=== PATIENT | female | born 1985 | race Caucasian/White ===

== ENCOUNTER → 2018-09-14 17:03 | Outpatient (CLI) | payer OTHER, SELFPAY ==
--- NOTE | 2018-09-14 | DI.MRI.S_ITS ---
PROCEDURE: MR LUMBAR SPINE WO CON INDICATIONS: Low back pain with left leg and foot pain TECHNIQUE: Noncontrast sagittal T1 spin echo and T2 fast echo, sagittal STIR, axial T1 and T2 fast spin echo through the lumbar spine. In cases with scoliosis, additional coronal T2 fast spin echo may be performed. COMPARISON: None. FINDINGS: Image quality: Excellent. Alignment and Curvature: There is normal bony alignment. Bone Marrow: Marrow is of normal overall signal. No acute vertebral body compression fractures. Spinal Cord: Conus medullaris terminates at the L1 level. Visualized cord demonstrates normal signal and size. Paraspinous Soft Tissues: No paravertebral masses. T12-L1: Normal appearance. L1-L2: Normal appearance. L2-L3: Normal appearance. L3-L4: Normal appearance. L4-L5: The disc height is well-preserved. Loss of disc signal is seen at this level. Mild to moderate disc bulge is seen, which is eccentric to the left. There is mild to moderate left-sided and minimal to mild right-sided neural foraminal narrowing seen. Mild to moderate central canal narrowing is seen. L5-S1: No significant disc pathology can be seen. No significant neural foraminal or central canal narrowing can be seen. 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 Dictated by: Timbo De Santiago M.D. on 09/14/2018 at 17:23 Approved by: Timbo De Santiago M.D. on 09/14/2018 at 17:25
== END ==
PROVIDERS: Family Provider Family Medicine; PCP Family Medicine; Visit Provider Family Medicine
DX: M54.5 Low back pain (principal); M79.605 Pain in left leg; M79.672 Pain in left foot; M47.26 Other spondylosis with radiculopathy, lumbar region; M48.061 Spinal stenosis, lumbar region without neurogenic claudication
CPT/HCPCS: 72148

== ENCOUNTER → 2018-10-21 15:03 | Outpatient (CLI) | payer OTHER, SELFPAY ==
--- NOTE | 2018-10-21 | DI.ECHO.S_ITS ---
[facility] +---------+ : : [address] : [place] : : : : [id number] : : : : Phone: [phone]+ Echocardiogram Report + + :Name: MEG BRYAN Study Date: 10/21/2018 Height: 63 in : :[facility] Weight: 113 lb : : Gender: Female BSA: 1.5 m2 : :: 1985 Age: 32 yrs BP: 108/20 mmHg: :Reason For Study: Syncope : : Performed By: Lianet Anne : :Referring: CARLOS MANUEL SOSA : + + Interpretation Summary 1) Normal left ventricular thickness, size, wall motion, and systolic function (EF 60-65%). 2) Normal right ventricular size and function. 3) No significant valvular abnormalities. 4) Injection of contrast with valsalva documented an interatrial shunt. 5) No prior Echo available for comparison. Procedure: A two-dimensional transthoracic echocardiogram with color flow and Doppler was performed. The study quality was technically good. There is no prior echocardiogram noted for this patient. The patient was in normal sinus rhythm during the exam. Left Ventricle: The left ventricle is normal in size, wall thickness, and systolic function without any focal wall motion abnormalities. The ejection fraction is estimated to be 60-65%. Diastolic parameters suggest probable normal left ventricular diastolic function and normal filling pressures. Right Ventricle: The right ventricle grossly appears normal in size with probable normal systolic function. Atria: The left atrial size is normal. Right atrial size is normal. Injection of contrast with valsalva documented an interatrial shunt. Mitral Valve: The mitral valve is normal in structure and function. There is no mitral regurgitation noted. Aortic Valve: The aortic valve is trileaflet. The aortic valve opens well. No aortic regurgitation is present. Tricuspid Valve: The tricuspid valve is normal in structure and function. There is trace tricuspid regurgitation. The right ventricular systolic pressure is estimated to be at least 18 mmHg based on an estimated right atrial pressure of 3 mm Hg. Pulmonic Valve: The pulmonic valve is normal in structure and function. There is a trace or physiologic amount of pulmonic regurgitation. Great Vessels: The aortic root is normal size. The aortic arch is normal in size. The IVC is of normal diameter and collapses greater than 50% with a sniff. This suggests a low right atrial pressure of 3 mm Hg. Pericardium/ Pleura There is no pericardial effusion. There is no pleural effusion. MMode/2D Measurements & Calculations LVIDd: 4.4 cm Ao root diam: 2.7 cm LVIDs: 2.9 cm Aortic Jxn: 2.1 cm FS: 33.9 % Ao Arch Diam (Prox Trans): 2.5 cm EPSS: 0.27 cm IVSd: 0.68 cm LVPWd: 0.75 cm LV hansen. diameter/BSA (cm/m^2): 2.9 LV sys. diameter/BSA (cm/m^2): 1.9 LA dimension: 2.9 cm RA long axis: 3.6 cm LA A2 area: 11.8 cm2 RA area: 10.3 cm2 LA A4 area: 13.4 cm2 RA vol: 24.9 ml RA : 16.4 ml/m2 IVC diam: 1.6 cm RVDd major: 5.1 cm RVD1 (basal): 2.8 cm LA Length_phl: 4.7 cm RVD2 (mid): 2.8 cm Doppler Measurements & Calculations Ao V2 max: 109.7 cm/sec MV E max herbert: 62.7 cm/sec Ao V2 mean: 77.3 cm/sec MV A max herbert: 80.3 cm/sec Ao max P.8 mmHg MV E/A: 0.78 Ao mean P.7 mmHg Med Peak E' Herbert: 10.3 cm/sec Ao V2 VTI: 21.0 cm E/E' med: 6.1 Lat Peak E' Herbert: 12.8 cm/sec E/E' lat: 4.9 E/e' average: 5.5 MV dec time: 0.19 sec MV P1/2t: 53.5 msec TR max herbert: 194.0 cm/sec MV P1/2t max herbert: 62.3 cm/sec TR max P.1 mmHg MVA(P1/2t): 4.1 cm2 PA V2 max: 80.3 cm/sec PA V2 mean: 53.9 cm/sec PA mean P.4 mmHg PA Accel Time: 0.17 sec Reading Physician:04:54 PM
--- NOTE | 2018-10-21 | DI.MRI.S_ITS ---
PROCEDURE: MR CERVICAL SPINE WO CON INDICATIONS: SYNCOPE NECK AND BACK PAIN TECHNIQUE: Noncontrast sagittal T1 spin echo and T2 fast spin echo, sagittal STIR, foraminal oblique sagittal T2 fast spin echo, and axial gradient echo or T2 fast spin echo through the cervical spine. COMPARISON: [facility], MR, BRAIN WITHOUT CONTRAST, 09/10/2017, 17:06. [facility], MR, C-SPINE WITHOUT CONTRAST, 12/22/2011, 19:23. FINDINGS: Image quality: Excellent. Alignment and Curvature: There is straightening of the normal cervical lordosis. No focal AP alignment abnormality is seen. Bone Marrow: Marrow demonstrates normal overall signal. Spinal Cord: Visualized spinal cord has normal size and signal. No cerebellar tonsillar herniation. Paraspinous Soft Tissues: No paravertebral masses. Prevertebral soft tissues are normal in thickness. C2-C3: Normal appearance. C3-C4: Normal appearance. C4-C5: Normal appearance. C5-C6: Normal appearance. C6-C7: Normal appearance. C7-T1: Normal appearance. IMPRESSION: No significant focal disc pathology, central canal narrowing, or neural foraminal narrowing can be seen. Straightening of the normal cervical lordosis is seen, which is commonly observed in patients with muscular spasm. Dictated by: Timbo De Santiago M.D. on 10/21/2018 at 16:13 Approved by: Timbo De Santiago M.D. on 10/21/2018 at 16:15
--- NOTE | 2018-10-21 | DI.MRI.S_ITS ---
PROCEDURE: MR THORACIC SPINE WO CON INDICATIONS: Upper back pain TECHNIQUE: Noncontrast sagittal T1 spine echo and T2 fast spin echo, sagittal STIR, axial T1 and T2 fast spin echo through the thoracic spine. COMPARISON: [facility], MR, MR LUMBAR SPINE WO CON, 09/14/2018, 17:36. [facility], MR, MR CERVICAL SPINE WO CON, 10/21/2018, 16:13. FINDINGS: Image quality: Diagnostic, with note made of motion artifact. Alignment and Curvature: There is normal bony alignment. Bone Marrow: Marrow is of normal overall signal. No acute vertebral body compression fractures. Spinal Cord: Visualized spinal cord is normal in size and signal. Paraspinous Soft Tissues: No paravertebral masses. Miscellaneous: On axial images, central canal and foramina appear widely patent at all scanned levels. IMPRESSION: Normal thoracic spine MRI. Specifically, no findings is focal disc pathology, significant neural foraminal narrowing, or significant central canal narrowing can be seen. Dictated by: Timbo De Santiago M.D. on 10/21/2018 at 16:29 Approved by: Timbo De Santiago M.D. on 10/21/2018 at 16:31
== END ==
PROVIDERS: PCP Family Medicine; Visit Provider Family Medicine
DX: R55 Syncope and collapse (principal); M54.2 Cervicalgia; M54.6 Pain in thoracic spine
CPT/HCPCS: 72141; 72146; 93306

== ENCOUNTER 2018-11-20 14:20 | Emergency (ER) | payer OTHER, SELFPAY ==
[2018-11-20] VITALS (7 sets, daily range): BP systolic 115–125; BP diastolic 72–90; PULSE 87–145; RESP 15–20; TEMP 36.7; O2SAT 94–100
--- NOTE | 2018-11-20 15:58 | PC.NURSE ---
Pt spouse states pt having seizure. [employer] Jb notified. I observed pt with bilateral eye fluttering. Attempt to talk to pt and she was not responding to me. Episode lasted App45 seconds. Seizure precautions started. Pt placed on monitor. Pt remains in hallway within visual field of this RN. remains at bedside. after episode, pt A.O. X4. Able to answer all questions, denies loss of bowels or bladder. states she was aware of me at the bedside however was unable to answer me. States she has had two episodes while in hallway.
--- NOTE | 2018-11-20 16:46 | PC.NURSE ---
1644 vitals during seizure like activity.
[2018-11-20 17:00] LABS: Add Manual Diff / Slide Review NO; Basophils Absolute Auto 100 /uL (0-100); Eosinophils Absolute Auto 200 /uL (0-450); Eosinophils Percent Auto 3.2 % (2-4); Hematocrit 46.6 % (36-46); Hemoglobin 15.8 g/dL (12.0-16.0); Lymphocytes Absolute Auto 2000 /uL (1100-4500); Lymphocytes Percent Auto 31.8 % (25-40); Mean Corpuscular HGB Conc 33.8 % (30-36); Mean Corpuscular Volume 88.6 fL (80-100); Monocytes Absolute Auto 300 /uL (0-900); Monocytes Percent Auto 5.4 % (3-14); Neutrophils Absolute Auto 3700 /uL (1500-7000); Neutrophils Percent Auto 58.6 % (50-75); Platelet Count 294 X10^3/uL (150-400); Red Blood Cell Count 5.26 X10^6/uL (4.0-5.2); Red Cell Distribution Width 12.1 % (11.6-14.8); White Blood Cell Count 6.3 X10^3/uL (4.5-11.0)
[2018-11-20 17:03] LABS: Alanine Aminotransferase 38 IU/L (9-52); Albumin 4.6 g/dL (3.5-5.0); Albumin Globulin Ratio 1.4 (1.0-2.8); Alkaline Phosphatase 83 U/L (38-126); Aspartate Aminotransferase 24 IU/L (14-36); BUN Creatinine Ratio 14.3 (6-22); Bilirubin Total 0.6 mg/dL (0.2-1.3); Blood Urea Nitrogen 10 mg/dL (7-17); Calcium 9.6 mg/dL (8.4-10.2); Carbon Dioxide 24 mmol/L (22-32); Chloride 105 mmol/L (98-107); Estimated Glomerular Filt Rate > 60.0 mL/min (>60); Globulin 3.3 g/dL (1.7-4.1); Glucose 88 mg/dL (70-100); HEMOLYSIS < 15 (0-50); Potassium 3.6 mmol/L (3.4-5.1); Sodium 140 mmol/L (137-145); Total Protein 7.9 g/dL (6.3-8.2)
[2018-11-20 17:04] LABS: Magnesium 1.9 mg/dL (1.6-2.3)
[2018-11-20 17:20] LABS: Prolactin 13.5 ng/mL (3.0-18.6)
--- NOTE | 2018-11-20 17:21 | ED.NEUROSD ---
HPI - Neuro Symptoms/Deficit General Chief Complaint: Neuro Symptoms/Deficit Stated Complaint: Seizures (5) in last hr. Time Seen by Provider: 11/20/18 16:50 Source: patient and family () Limitations: no limitations History of Present Illness HPI Narrative: He is a 33-year-old female comes to the emergency department with complaint of episodes where she can't move or speak. She states she can hear tearing episodes. The very short. He to be sort of shaky. She denies any headache during the episode but she does have a history of migraines, patient states she feels sort of tight in her neck right before. She does not get vision changes. She states she has had some facial droop that started in August it was sort of come and go intermittently. She states in the episodes started more recently with the not being able to move or speak. And she complained of some numbness in her left arm and leg. She was seen at [facility] on that date she did have a head CT. She has since seen Dr. Gottlieb from Neurology. She has had an EEG nothing was found and she is supposed to be set up with video EEG. Patient has small fiber neuropathy, she also has been set up with a ZIO patch as well as had an echo regarding these episodes. She has not had any fevers. She is not having any nausea or vomiting. No issues with bowel movements or urination. She also had some episodes of syncope or passing out but these were different. One of her syncope episode was witnessed by Dr. Gottlieb. Patient does not have any episodes of urinary incontinence. No other fecal incontinence. On Anticoagulants: No Related Data Home Medications Medication Instructions Recorded Confirmed gabapentin [Neurontin] 600 mg PO TID #0 06/07/17 02/02/18 hydrocodone-acetaminophen [Gulston] 1 tab PO Q6H PRN #0 08/17/17 02/02/18 sumatriptan succinate [Imitrex] 25 mg PO BID PRN #0 08/17/17 02/02/18 alpha lipoic acid 600 mg capsule 600 mg PO BID cap 02/02/18 02/02/18 cholecalciferol (vitamin D3) 4,000 4,000 unit PO DAILY 02/02/18 02/02/18 unit capsule onabotulinumtoxinA 100 unit 200 unit IM [id number] each 02/02/18 02/02/18 solution for injection topiramate 100 mg tablet 100 mg PO DAILY tab 02/02/18 02/02/18 vitamin B complex tablet 1 tab PO DAILY 02/02/18 02/02/18 Previous Rx's Medication Instructions Recorded dihydroergotamine 4 mg NS SEE INSTRUCTIONS #8 spray 08/25/17 naratriptan 2.5 mg PO SEE INSTRUCTIONS PRN #12 09/20/17 tab methylergonovine 0.2 mg OR TID #90 tab 09/29/17 hydroxyzine pamoate 25 mg PO BIDP PRN #60 cap 10/08/17 Allergies Allergy/AdvReac Type Severity Reaction Status Date / Time No Known Drug Allergies Allergy Unverified 02/02/18 09:55 Review of Systems Review of Systems ROS Unobtainable: All systems reviewed & are unremarkable except as noted in HPI and below Constitutional Denies chills, Denies fatigue, Denies fever(s), Denies frequent falls, Reports headache(s) (migraines, does not associate with episodes.), Denies lethargy and Denies weakness Eyes Denies blurry vision and Denies change in vision ENT Ears, Nose, Mouth, and Throat: Denies vertigo, Reports headache(s) (migraines, does not associate with episodes.), Denies disequilibrium and Reports other (facial droop, comes and goes.) Cardiovascular Denies chest pain, Reports syncope (not with episodes.), Denies irregular heart rhythm, Denies lightheadedness, Denies radiating jaw, neck or arm pain, Denies palpitations, Denies dyspnea, Denies dyspnea on exertion and Denies orthopnea Respiratory Denies chest congestion, Denies cough, Denies dyspnea, Denies dyspnea on exertion and Denies wheezing Gastrointestinal Gastrointestinal: Denies abdominal pain, Denies change in bowel habits, Denies diarrhea, Denies nausea and Denies vomiting Genitourinary Denies hematuria, Denies flank pain, Denies urinary incontinence and Denies urinary urgency Musculoskeletal Denies numbness Integumentary/Breasts Denies rash Neurologic Reports as per HPI, Denies abnormal speech, Denies confusion, Denies vertigo, Reports syncope (not with episodes.), Denies frequent falls, Reports headache(s) (migraines, does not associate with episodes.), Denies focal weakness, Denies numbness, Reports convulsions (episodes, can't talk/speak), Reports seizure-like activity (?), Denies disequilibrium and Denies weakness Psychiatric Denies confusion Endocrine Denies fatigue and Denies palpitations Allergic/Immunologic Denies wheezing [facility] Medical History (Updated 11/20/18 @ 20:01 by Elizabeth Macias DO) Migraines (Chronic) Small fiber neuropathy (Chronic) Social History Smoking Status: Former smoker Social History Smoking Status: Former smoker Exam Narrative Exam Narrative: GEN: well nourished, well appearing female, alert and oriented x 3, patient appears to be in no acute distress. HEENT: Atraumatic, pupils are equal round reactive to light, extraocular movements are intact, nares are clear, TMs are clear with no fluid, there is no conjunctival pallor. Throat is clear without any exudates, erythema, tonsillar enlargement or uvular deviation, no facial droop appreciated. HEART: Regular rate and rhythm without murmur, clicks, rubs. Pulses are equal in upper and lower extremities LUNGS:Lungs clear to auscultation, no wheezes, rales, crackles, chest moves symmetrically ABD:bowel sounds normal, soft, non-tender, no guarding, rebound, rigidity, no masses noted, no hepatosplenomegaly :No CVA tenderness MSCL: Non-tender, no muscle atrophy, muscles strength 5/5 upper and lower extremities, full range of motion, gait not tested. NEURO:CN 2-12 intact, sensation normal, reflexes 2/4 upper and lower extremities. Initial Vital Signs Initial Vital Signs: Vital Signs Temperature 98.1 F 11/20/18 14:42 Pulse Rate 87 11/20/18 14:42 Respiratory Rate 20 11/20/18 14:42 Blood Pressure 118/78 11/20/18 14:42 Pulse Oximetry 98 11/20/18 14:42 Scores GCS Homeland coma scale eye opening: Spontaneous Homeland coma scale verbal response: Orientated Bradley coma scale motor response: Obey commands Homeland coma scale total score: 15 Course Orders Ordered: ED Orders 11/20/18 14:30 Complete Blood Count AUTO DIFF Stat Comprehensive Metabolic Panel Stat D Dimer Stat Magnesium Stat Prolactin Stat Troponin & CK Cardiac Panel Stat 11/20/18 17:22 CT head/brain wo con Stat 11/20/18 17:23 XR chest 1V Stat 11/20/18 17:50 Urine Culture Stat Urine Drug Screen, Rapid Stat Urine Microscopic Stat Discontinued Medications Lorazepam (Ativan) 1 mg IV NOW ONE Stop: 11/20/18 17:27 Last Admin: 11/20/18 17:27 Dose: 1 mg Vital Signs - 8 hr 11/20/18 14:42 11/20/18 15:57 11/20/18 16:44 Temperature 98.1 F Pulse Rate 87 97 H 145 H Respiratory Rate 20 15 19 Blood Pressure 118/78 Blood Pressure [Left Arm] 118/75 125/80 Pulse Oximetry 98 100 100 11/20/18 16:46 11/20/18 16:52 11/20/18 19:30 Temperature Pulse Rate 98 H 111 H 110 H Respiratory Rate 19 18 15 Blood Pressure Blood Pressure [Left Arm] 119/80 125/90 115/75 Pulse Oximetry 100 99 94 11/20/18 20:31 Temperature Pulse Rate 98 H Respiratory Rate 19 Blood Pressure Blood Pressure [Left Arm] 118/72 Pulse Oximetry 99 MDM - Neuro Symptoms/Deficit Lab Data Attestation: I reviewed the patient's lab results. Result diagrams: 11/20/18 14:30 11/20/18 14:30 Lab Results 11/20/18 11/20/18 11/20/18 Range/Units 14:30 14:30 14:30 WBC 6.3 (4.5-11.0) X10^3/uL RBC 5.26 H (4.0-5.2) X10^6/uL Hgb 15.8 (12.0-16.0) g/dL Hct 46.6 H (36-46) % MCV 88.6 (80-100) fL MCH 30.0 (26-34) PG MCHC 33.8 (30-36) % RDW 12.1 (11.6-14.8) % Plt Count 294 (150-400) X10^3/uL Neut % (Auto) 58.6 (50-75) % Lymph % (Auto) 31.8 (25-40) % [place] % (Auto) 5.4 (3-14) % Eos % (Auto) 3.2 (2-4) % Baso % (Auto) 1.0 (0-2) % Neut # (Auto) 3700 (2570-2469) /uL Lymph # (Auto) 2000 (3404-5204) /uL [place] # (Auto) 300 (0-900) /uL Eos # (Auto) 200 (0-450) /uL Baso # (Auto) 100 (0-100) /uL D-Dimer (<230) ng/mL Sodium 140 (137-145) mmol/L Potassium 3.6 (3.4-5.1) mmol/L Chloride 105 (98-107) mmol/L Carbon Dioxide 24 (22-32) mmol/L BUN 10 (7-17) mg/dL Creatinine 0.70 (0.52-1.04) mg/dL Estimated GFR > 60.0 (>60) mL/min BUN/Creatinine Ratio 14.3 (6-22) Glucose 88 (70-100) mg/dL Calcium 9.6 (8.4-10.2) mg/dL Magnesium 1.9 (1.6-2.3) mg/dL Total Bilirubin 0.6 (0.2-1.3) mg/dL AST 24 (14-36) IU/L ALT 38 (9-52) IU/L Alkaline Phosphatase 83 (38-126) U/L Total Creatine Kinase (30-135) U/L CK-MB (CK-2) CK-MB (CK-2) Rel Index Troponin I (0.01-0.034) ng/mL Total Protein 7.9 (6.3-8.2) g/dL Albumin 4.6 (3.5-5.0) g/dL Globulin 3.3 (1.7-4.1) g/dL Albumin/Globulin Ratio 1.4 (1.0-2.8) Prolactin 13.5 (3.0-18.6) ng/mL Urine Color Urine Appearance Urine pH Ur Specific [place] Urine Protein Urine Glucose (UA) Urine Ketones Urine Occult Blood Urine Nitrate Urine Bilirubin Urine Urobilinogen Ur Leukocyte Esterase Urine RBC (0-5/HPF) Urine WBC (0-5/HPF) Ur Squamous Epith Cells (0-5/HPF) Urine Bacteria (None) Ur Culture Indicated? Urine Opiates Screen (Negative) Ur Oxycodone Screen (Negative) Urine Methadone Screen (Negative) Ur Barbiturates Screen (Negative) U Tricyclic Antidepress (Negative) Ur Phencyclidine Scrn (Negative) Ur Amphetamines Screen (Negative) U Methamphetamines Scrn (Negative) Ur MDMA Scrn (Ecstasy) (Negative) U Benzodiazepines Scrn (Negative) Urine Cocaine Screen (Negative) U Marijuana (THC) Screen (Negative) 11/20/18 11/20/18 11/20/18 Range/Units 14:30 14:30 17:50 WBC (4.5-11.0) X10^3/uL RBC (4.0-5.2) X10^6/uL Hgb (12.0-16.0) g/dL Hct (36-46) % MCV (80-100) fL MCH (26-34) PG MCHC (30-36) % RDW (11.6-14.8) % Plt Count (150-400) X10^3/uL Neut % (Auto) (50-75) % Lymph % (Auto) (25-40) % [place] % (Auto) (3-14) % Eos % (Auto) (2-4) % Baso % (Auto) (0-2) % Neut # (Auto) (4311-3006) /uL Lymph # (Auto) (9570-6732) /uL [place] # (Auto) (0-900) /uL Eos # (Auto) (0-450) /uL Baso # (Auto) (0-100) /uL D-Dimer < 200 (<230) ng/mL Sodium (137-145) mmol/L Potassium (3.4-5.1) mmol/L Chloride (98-107) mmol/L Carbon Dioxide (22-32) mmol/L BUN (7-17) mg/dL Creatinine (0.52-1.04) mg/dL Estimated GFR (>60) mL/min BUN/Creatinine Ratio (6-22) Glucose (70-100) mg/dL Calcium (8.4-10.2) mg/dL Magnesium (1.6-2.3) mg/dL Total Bilirubin (0.2-1.3) mg/dL AST (14-36) IU/L ALT (9-52) IU/L Alkaline Phosphatase (38-126) U/L Total Creatine Kinase 34 (30-135) U/L CK-MB (CK-2) TNP CK-MB (CK-2) Rel Index TNP Troponin I < 0.012 (0.01-0.034) ng/mL Total Protein (6.3-8.2) g/dL Albumin (3.5-5.0) g/dL Globulin (1.7-4.1) g/dL Albumin/Globulin Ratio (1.0-2.8) Prolactin (3.0-18.6) ng/mL Urine Color Urine Appearance Urine pH Ur Specific [place] Urine Protein Urine Glucose (UA) Urine Ketones Urine Occult Blood Urine Nitrate Urine Bilirubin Urine Urobilinogen Ur Leukocyte Esterase Urine RBC (0-5/HPF) Urine WBC (0-5/HPF) Ur Squamous Epith Cells (0-5/HPF) Urine Bacteria (None) Ur Culture Indicated? Urine Opiates Screen Negative (Negative) Ur Oxycodone Screen Negative (Negative) Urine Methadone Screen Negative (Negative) Ur Barbiturates Screen Negative (Negative) U Tricyclic Antidepress Negative (Negative) Ur Phencyclidine Scrn Negative (Negative) Ur Amphetamines Screen Negative (Negative) U Methamphetamines Scrn Negative (Negative) Ur MDMA Scrn (Ecstasy) Negative (Negative) U Benzodiazepines Scrn Negative (Negative) Urine Cocaine Screen Negative (Negative) U Marijuana (THC) Screen Negative (Negative) 11/20/18 Range/Units 17:50 WBC (4.5-11.0) X10^3/uL RBC (4.0-5.2) X10^6/uL Hgb (12.0-16.0) g/dL Hct (36-46) % MCV (80-100) fL MCH (26-34) PG MCHC (30-36) % RDW (11.6-14.8) % Plt Count (150-400) X10^3/uL Neut % (Auto) (50-75) % Lymph % (Auto) (25-40) % [place] % (Auto) (3-14) % Eos % (Auto) (2-4) % Baso % (Auto) (0-2) % Neut # (Auto) (3019-4983) /uL Lymph # (Auto) (3927-2076) /uL [place] # (Auto) (0-900) /uL Eos # (Auto) (0-450) /uL Baso # (Auto) (0-100) /uL D-Dimer (<230) ng/mL Sodium (137-145) mmol/L Potassium (3.4-5.1) mmol/L Chloride (98-107) mmol/L Carbon Dioxide (22-32) mmol/L BUN (7-17) mg/dL Creatinine (0.52-1.04) mg/dL Estimated GFR (>60) mL/min BUN/Creatinine Ratio (6-22) Glucose (70-100) mg/dL Calcium (8.4-10.2) mg/dL Magnesium (1.6-2.3) mg/dL Total Bilirubin (0.2-1.3) mg/dL AST (14-36) IU/L ALT (9-52) IU/L Alkaline Phosphatase (38-126) U/L Total Creatine Kinase (30-135) U/L CK-MB (CK-2) CK-MB (CK-2) Rel Index Troponin I (0.01-0.034) ng/mL Total Protein (6.3-8.2) g/dL Albumin (3.5-5.0) g/dL Globulin (1.7-4.1) g/dL Albumin/Globulin Ratio (1.0-2.8) Prolactin (3.0-18.6) ng/mL Urine Color Cancelled Urine Appearance Cancelled Urine pH Cancelled Ur Specific [place] Cancelled Urine Protein Cancelled Urine Glucose (UA) Cancelled Urine Ketones Cancelled Urine Occult Blood Cancelled Urine Nitrate Cancelled Urine Bilirubin Cancelled Urine Urobilinogen Cancelled Ur Leukocyte Esterase Cancelled Urine RBC 0-1/hpf (0-5/HPF) Urine WBC 10-30/hpf H (0-5/HPF) Ur Squamous Epith Cells 1-5 /hpf (0-5/HPF) Urine Bacteria Many (>30) H (None) Ur Culture Indicated? Specimen cultured Urine Opiates Screen (Negative) Ur Oxycodone Screen (Negative) Urine Methadone Screen (Negative) Ur Barbiturates Screen (Negative) U Tricyclic Antidepress (Negative) Ur Phencyclidine Scrn (Negative) Ur Amphetamines Screen (Negative) U Methamphetamines Scrn (Negative) Ur MDMA Scrn (Ecstasy) (Negative) U Benzodiazepines Scrn (Negative) Urine Cocaine Screen (Negative) U Marijuana (THC) Screen (Negative) Point of Care Testing Test Results Negative Urine Dip Bedside Urine Glucose Negative Bedside Urine Bilirubin - Negative Bedside Urine Ketone - Negative Urine Specific [place] 1.020 Bedside Urine Occult Blood - Negative Bedside Urine pH 6.0 Bedside Urine Protein - Negative Bedside Urine Urobilinogen - Negative Bedside Urine Nitrite - Negative Bedside Urine Leukocytes +++ [address] scan - head: Radiologist's impression: [address] [address] [address] Scan Report Signed Patient: Ava Wellington RMR#: [id number] : 1985Acct:[id number] Age/Sex: te of Service: 11/20/18 Loc: ED Accession Number: [id number] Procedure: CT head/brain wo con Ordering Provider: Elizabeth Macias D.O. PROCEDURE: CT HEAD/BRAIN WO CON INDICATIONS: seizure vs syncope TECHNIQUE: Noncontrast 4.5 mm thick angled axial sections acquired from the foramen magnum to the vertex, with coronal and sagittal reformats. For radiation dose reduction, the following was used: automated exposure control, adjustment of mA and/or kV according to patient size. COMPARISON: None. FINDINGS: Image quality: Excellent. CSF spaces: Basal cisterns are patent. No extra-axial fluid collections. Ventricles are normal in size and shape. Brain: No midline shift. No intracranial masses or hemorrhage. Lin-white matter interface is normal. Skull and face: Calvarium and visualized facial bones are intact, without suspicious lesions. Sinuses: Visualized sinuses and mastoids are clear. IMPRESSION: CT head without acute intracranial abnormalities or mass/mass effect. Dictated by: Nicholas Nunez M.D. on 11/20/2018 at 18:04 Approved by: Nicholas Nunez M.D. on 11/20/2018 at 18:05 Chest x-ray: Radiologist's impression: [address] [address] XRay Report Signed Patient: Ava Wellington RMR#: [id number] : 1985Acct:[id number] Age/Sex: FDate of Service: 11/20/18 Loc: ED Accession Number: [id number] Procedure: XR chest 1V Ordering Provider: Elizabeth Macias D.O. PROCEDURE: XR CHEST 1V INDICATIONS: seizure vs syncope vs other TECHNIQUE: One view of the chest was acquired. COMPARISON: 04/20/17. FINDINGS: Surgical changes and devices: Cardiac monitoring device projects over the left chest. Lungs and pleura: Lungs are clear. No pleural effusions or pneumothorax. Mediastinum: Mediastinal contours appear normal. Heart size is normal. Bones and chest wall: No suspicious bony lesions. Overlying soft tissues appear unremarkable. IMPRESSION: No acute cardiopulmonary abnormalities. Dictated by: Nicholas Nunez M.D. on 11/20/2018 at 18:55 Approved by: Nicholas Nunez M.D. on 11/20/2018 at 18:56 MDM Narrative Medical decision making narrative: 33-year-old female patient's head CT, chest x-ray and lab work did not show any acute changes. I spoke with Dr. Zhao who is on for her neurologist Dr. gottlieb. We discussed patient's episodes, patient does have an elevation in her heart rate when these episodes occur but otherwise they are very short, patient can hear everything that is being said during the episodes and she does not have any postictal phase after her 20-30 seconds they seem to be over and patient is back to her normal self. We discussed that patient has had EEG monitoring which was negative, the next step would be video monitoring they do not have that available at [facility]. He do have it available at some of the hospitals down [facility] and if patient wishes to have short-term follow-up as outpatient that would be an option if she prefers to do monitoring she would recommend transfer. Spoke with patient and , discussed neurology's concerns but that we cannot totally rule out any seizure like activity without that further evaluation. We discussed transfer to another facility with video EEG capabilities, patient prefers not to be transferred at this time. She is understandably upset that we do not have an exact answer and that I did discuss that she may be having psychogenic seizures which are not true epileptic seizures. We did also discuss that some people can have epileptic seizures and psychogenic seizures and there are multiple types of seizure patterns so she really should have further monitoring. Patient is aware of the plan. She is already getting set up for video monitoring and Dr. Salazar asked that they call in the morning to help facilitate that faster. Patient and plan to do that she also has a secondary consultation with a different neurologist in [facility] in the future. We did discuss that she should continue to wear the ZIO patch and continue with further evaluation and workup to look for other causes as well. Discharge Plan Departure Patient Disposition: Home Clinical Impression: Acute alteration in mental status Discharge Date/Time: 11/20/18 20:32 Interventions: ED Discharge Assessment Last Done: 11/20/18 20:32 Instructions: DI for Seizure Disorder -- Adult, DI for Psychogenic Nonepileptic Seizures Activity Restrictions/Additional Instructions: Follow up with Dr. Gottlieb tomorrow. Call the office, let them know I spoke with Dr. Salazar and they would like to have it scheduled for video monitoring as well as follow-up. I also recommend consultation with a second neurologist as you have already scheduled. You can call to see if they can move up your appointment. Continue home medications as prescribed. Your lab work today it does show some changes to your urine, urine culture is pending if it is positive for infection he should receive a phone. Return to the emergency department for fevers greater than 100.4, new alterations in mental status, changes in your pattern of episodes, sudden severe headaches, new vision changes, persistent vomiting, new chest pain, shortness of breath, persistently elevated heart rate or other new or concerning symptoms. Prescriptions: No Action alpha lipoic acid 600 mg capsule 600 mg PO BID RF: 0 topiramate 100 mg tablet 100 mg PO DAILY RF: 0 vitamin B complex [B Complex-Vitamin B12] tablet 1 tab PO DAILY RF: 0 cholecalciferol (vitamin D3) 4,000 unit capsule 4,000 unit PO DAILY RF: 0 onabotulinumtoxinA [Botox] 100 unit recon soln 200 unit IM [id number] RF: 0 gabapentin [Neurontin] 300 MG capsule 600 mg PO TID Qty: 0 RF: 0 hydrocodone-acetaminophen [Gulston] 5 MG/325 MG tablet 1 tab PO Q6H PRNQty: 0 RF: 0 sumatriptan succinate [Imitrex] 25 MG tablet 25 mg PO BID PRNQty: 0 RF: 0 dihydroergotamine 1 ML spray,non-aerosol 4 mg NS SEE INSTRUCTIONS Qty: 8 RF: 2 naratriptan 2.5 MG tablet 2.5 mg PO SEE INSTRUCTIONS PRNQty: 12 RF: 0 methylergonovine 0.2 MG/1 ML solution 0.2 mg OR TID Qty: 90 RF: 1 hydroxyzine pamoate 25 MG capsule 25 mg PO BIDP PRNQty: 60 RF: 3 Referrals: Crista Lane MD [Primary Care Provider] -
--- NOTE | 2018-11-20 17:25 | PC.NURSE ---
Pt had episode at this time. Hr increased to 140s-150s. Pt shaking and not responding to staff. Provider at bedside. Ordered ativan 1 mg at this time.
[2018-11-20] MEDS: LORazepam 2 MG/ML SYRINGE 1 MG IV (17:27)
[2018-11-20 17:36] LABS: Creatine Kinase 34 U/L (30-135); D Dimer < 200 ng/mL (<230)
[2018-11-20 17:49] LABS: Troponin I < 0.012 ng/mL (0.01-0.034)
--- NOTE | 2018-11-20 18:43 | ED_ITS ---
HPI - Neuro Symptoms/Deficit General Chief Complaint: Neuro Symptoms/Deficit Stated Complaint: Seizures (5) in last hr. Time Seen by Provider: 11/20/18 16:50 Source: patient and family () Limitations: no limitations History of Present Illness HPI Narrative: He is a 33-year-old female comes to the emergency department with complaint of episodes where she can't move or speak. She states she can hear tearing episodes. The very short. He to be sort of shaky. She denies any headache during the episode but she does have a history of migraines, patient states she feels sort of tight in her neck right before. She does not get vis ion changes. She states she has had some facial droop that started in August it was sort of come and go intermittently. She states in the episodes started more recently with the not being able to move or speak. And she complained of some numbness in her left arm and leg. She was seen at [facility] on that date she did have a head CT. She has since seen Dr. Gottlieb from Neurology. She has had an EEG nothing was found and she is supposed to be set up with video EEG. Patient has small fiber neuropathy, she also has been set up with a ZIO patch as well as had an echo regarding these episodes. She has not had any fevers. She is not having any nausea or vomiting. No issues with bowel movements or urination. She also had some episodes of syncope or passing out but these were different. One of her syncope episode was witnessed by Dr. Gottlieb. Patient does not have any episodes of urinary incontinence. No other fecal incontinence. On Anticoagulants: No Related Data Home Medications Medication Instructions Recorded Confirmed gabapentin [Neurontin] 600 mg PO TID #0 06/07/17 02/02/18 hydrocodone-acetaminophen [Butler] 1 tab PO Q6H PRN #0 08/17/17 02/02/18 sumatriptan succinate [Imitrex] 25 mg PO BID PRN #0 08/17/17 02/02/18 alpha lipoic acid 600 mg capsule 600 mg PO BID cap 02/02/18 02/02/18 cholecalciferol (vitamin D3) 4,000 4,000 unit PO DAILY 02/02/18 02/02/18 unit capsule onabotulinumtoxinA 100 unit 200 unit IM [id number] each 02/02/18 02/02/18 solution for injection topiramate 100 mg tablet 100 mg PO DAILY tab 02/02/18 02/02/18 vitamin B complex tablet 1 tab PO DAILY 02/02/18 02/02/18 Previous Rx's Medication Instructions Recorded dihydroergotamine 4 mg NS SEE INSTRUCTIONS #8 spray 08/25/17 naratriptan 2.5 mg PO SEE INSTRUCTIONS PRN #12 09/20/17 tab methylergonovine 0.2 mg OR TID #90 tab 09/29/17 hydroxyzine pamoate 25 mg PO BIDP PRN #60 cap 10/08/17 Allergies Allergy/AdvReac Type Severity Reaction Status Date / Time No Known Drug Allergies Allergy Unverified 02/02/18 09:55 Review of Systems Review of Systems ROS Unobtainable: All systems reviewed & are unremarkable except as noted in HPI and below Constitutional Denies chills, Denies fatigue, Denies fever(s), Denies frequent falls, Reports headache(s) (migraines, does not associate with episodes.), Denies lethargy and Denies weakness Eyes Denies blurry vision and Denies change in vision ENT Ears, Nose, Mouth, and Throat: Denies vertigo, Reports headache(s) (migraines, does not associate with episodes.), Denies disequilibrium and Reports other (facial droop, comes and goes.) Cardiovascular Denies chest pain, Reports syncope (not with episodes.), Denies irregular heart rhythm, Denies lightheadedness, Denies radiating jaw, neck or arm pain, Denies palpitations, Denies dyspnea, Denies dyspnea on exertion and Denies orthopnea Respiratory Denies chest congestion, Denies cough, Denies dyspnea, Denies dyspnea on exertion and Denies wheezing Gastrointestinal Gastrointestinal: Denies abdominal pain, Denies change in bowel habits, Denies diarrhea, Denies nausea and Denies vomiting Genitourinary Denies hematuria, Denies flank pain, Denies urinary incontinence and Denies urinary urgency Musculoskeletal Denies numbness Integumentary/Breasts Denies rash Neurologic Reports as per HPI, Denies abnormal speech, Denies confusion, Denies vertigo, Reports syncope (not with episodes.), Denies frequent falls, Reports headache(s) (migraines, does not associate with episodes.), Denies focal weakness, Denies numbness, Reports convulsions (episodes, can't talk/speak), Reports seizure-like activity (?), Denies disequilibrium and Denies weakness Psychiatric Denies confusion Endocrine Denies fatigue and Denies palpitations Allergic/Immunologic Denies wheezing COUNTS INCLUDE 234 BEDS AT THE [facility] Medical History (Updated 11/20/18 @ 20:01 by Elizabeth Macias DO) Migraines (Chronic) Small fiber neuropathy (Chronic) Social History Smoking Status: Former smoker Social History Smoking Status: Former smoker Exam Narrative Exam Narrative: GEN: well nourished, well appearing female, alert and oriented x 3, patient appears to be in no acute distress. HEENT: Atraumatic, pupils are equal round reactive to light, extraocular movements are intact, nares are clear, TMs are clear with no fluid, there is no conjunctival pallor. Throat is clear without any exudates, erythema, tonsillar enlargement or uvular deviation, no facial droop appreciated. HEART: Regular rate and rhythm without murmur, clicks, rubs. Pulses are equal in upper and lower extremities LUNGS:Lungs clear to auscultation, no wheezes, rales, crackles, chest moves symmetrically ABD:bowel sounds normal, soft, non-tender, no guarding, rebound, rigidity, no masses noted, no hepatosplenomegaly :No CVA tenderness MSCL: Non-tender, no muscle atrophy, muscles strength 5/5 upper and lower extremities, full range of motion, gait not tested. NEURO:CN 2-12 intact, sensation normal, reflexes 2/4 upper and lower extremities. Initial Vital Signs Initial Vital Signs: Vital Signs Temperature 98.1 F 11/20/18 14:42 Pulse Rate 87 11/20/18 14:42 Respiratory Rate 20 11/20/18 14:42 Blood Pressure 118/78 11/20/18 14:42 Pulse Oximetry 98 11/20/18 14:42 Scores GCS Bradley coma scale eye opening: Spontaneous Carlton coma scale verbal response: Orientated Carlton coma scale motor response: Obey commands Carlton coma scale total score: 15 Course Orders Ordered: ED Orders 11/20/18 14:30 Complete Blood Count AUTO DIFF Stat Comprehensive Metabolic Panel Stat D Dimer Stat Magnesium Stat Prolactin Stat Troponin & CK Cardiac Panel Stat 11/20/18 17:22 CT head/brain wo con Stat 11/20/18 17:23 XR chest 1V Stat 11/20/18 17:50 Urine Culture Stat Urine Drug Screen, Rapid Stat Urine Microscopic Stat Discontinued Medications Lorazepam (Ativan) 1 mg IV NOW ONE Stop: 11/20/18 17:27 Last Admin: 11/20/18 17:27 Dose: 1 mg Vital Signs - 8 hr 11/20/18 14:42 11/20/18 15:57 11/20/18 16:44 Temperature 98.1 F Pulse Rate 87 97 H 145 H Respiratory Rate 20 15 19 Blood Pressure 118/78 Blood Pressure [Left Arm] 118/75 125/80 Pulse Oximetry 98 100 100 11/20/18 16:46 11/20/18 16:52 11/20/18 19:30 Temperature Pulse Rate 98 H 111 H 110 H Respiratory Rate 19 18 15 Blood Pressure Blood Pressure [Left Arm] 119/80 125/90 115/75 Pulse Oximetry 100 99 94 11/20/18 20:31 Temperature Pulse Rate 98 H Respiratory Rate 19 Blood Pressure Blood Pressure [Left Arm] 118/72 Pulse Oximetry 99 MDM - Neuro Symptoms/Deficit Lab Data Attestation: I reviewed the patient's lab results. Result diagrams: 11/20/18 14:30 11/20/18 14:30 Lab Results 11/20/18 11/20/18 11/20/18 Range/Units 14:30 14:30 14:30 WBC 6.3 (4.5-11.0) X10^3/uL RBC 5.26 H (4.0-5.2) X10^6/uL Hgb 15.8 (12.0-16.0) g/dL Hct 46.6 H (36-46) % MCV 88.6 (80-100) fL MCH 30.0 (26-34) PG MCHC 33.8 (30-36) % RDW 12.1 (11.6-14.8) % Plt Count 294 (150-400) X10^3/uL Neut % (Auto) 58.6 (50-75) % Lymph % (Auto) 31.8 (25-40) % [place] % (Auto) 5.4 (3-14) % Eos % (Auto) 3.2 (2-4) % Baso % (Auto) 1.0 (0-2) % Neut # (Auto) 3700 (3531-9384) /uL Lymph # (Auto) 2000 (2277-7886) /uL [place] # (Auto) 300 (0-900) /uL Eos # (Auto) 200 (0-450) /uL Baso # (Auto) 100 (0-100) /uL D-Dimer (<230) ng/mL Sodium 140 (137-145) mmol/L Potassium 3.6 (3.4-5.1) mmol/L Chloride 105 (98-107) mmol/L Carbon Dioxide 24 (22-32) mmol/L BUN 10 (7-17) mg/dL Creatinine 0.70 (0.52-1.04) mg/dL Estimated GFR > 60.0 (>60) mL/min BUN/Creatinine Ratio 14.3 (6-22) Glucose 88 (70-100) mg/dL Calcium 9.6 (8.4-10.2) mg/dL Magnesium 1.9 (1.6-2.3) mg/dL Total Bilirubin 0.6 (0.2-1.3) mg/dL AST 24 (14-36) IU/L ALT 38 (9-52) IU/L Alkaline Phosphatase 83 (38-126) U/L Total Creatine Kinase (30-135) U/L CK-MB (CK-2) CK-MB (CK-2) Rel Index Troponin I (0.01-0.034) ng/mL Total Protein 7.9 (6.3-8.2) g/dL Albumin 4.6 (3.5-5.0) g/dL Globulin 3.3 (1.7-4.1) g/dL Albumin/Globulin Ratio 1.4 (1.0-2.8) Prolactin 13.5 (3.0-18.6) ng/mL Urine Color Urine Appearance Urine pH Ur Specific Randolph Urine Protein Urine Glucose (UA) Urine Ketones Urine Occult Blood Urine Nitrate Urine Bilirubin Urine Urobilinogen Ur Leukocyte Esterase Urine RBC (0-5/HPF) Urine WBC (0-5/HPF) Ur Squamous Epith Cells (0-5/HPF) Urine Bacteria (None) Ur Culture Indicated? Urine Opiates Screen (Negative) Ur Oxycodone Screen (Negative) Urine Methadone Screen (Negative) Ur Barbiturates Screen (Negative) U Tricyclic Antidepress (Negative) Ur Phencyclidine Scrn (Negative) Ur Amphetamines Screen (Negative) U Methamphetamines Scrn (Negative) Ur MDMA Scrn (Ecstasy) (Negative) U Benzodiazepines Scrn (Negative) Urine Cocaine Screen (Negative) U Marijuana (THC) Screen (Negative) 11/20/18 11/20/18 11/20/18 Range/Units 14:30 14:30 17:50 WBC (4.5-11.0) X10^3/uL RBC (4.0-5.2) X10^6/uL Hgb (12.0-16.0) g/dL Hct (36-46) % MCV (80-100) fL MCH (26-34) PG MCHC (30-36) % RDW (11.6-14.8) % Plt Count (150-400) X10^3/uL Neut % (Auto) (50-75) % Lymph % (Auto) (25-40) % [place] % (Auto) (3-14) % Eos % (Auto) (2-4) % Baso % (Auto) (0-2) % Neut # (Auto) (8788-5581) /uL Lymph # (Auto) (5876-8969) /uL [place] # (Auto) (0-900) /uL Eos # (Auto) (0-450) /uL Baso # (Auto) (0-100) /uL D-Dimer < 200 (<230) ng/mL Sodium (137-145) mmol/L Potassium (3.4-5.1) mmol/L Chloride (98-107) mmol/L Carbon Dioxide (22-32) mmol/L BUN (7-17) mg/dL Creatinine (0.52-1.04) mg/dL Estimated GFR (>60) mL/min BUN/Creatinine Ratio (6-22) Glucose (70-100) mg/dL Calcium (8.4-10.2) mg/dL Magnesium (1.6-2.3) mg/dL Total Bilirubin (0.2-1.3) mg/dL AST (14-36) IU/L ALT (9-52) IU/L Alkaline Phosphatase (38-126) U/L Total Creatine Kinase 34 (30-135) U/L CK-MB (CK-2) TNP CK-MB (CK-2) Rel Index TNP Troponin I < 0.012 (0.01-0.034) ng/mL Total Protein (6.3-8.2) g/dL Albumin (3.5-5.0) g/dL Globulin (1.7-4.1) g/dL Albumin/Globulin Ratio (1.0-2.8) Prolactin (3.0-18.6) ng/mL Urine Color Urine Appearance Urine pH Ur Specific Randolph Urine Protein Urine Glucose (UA) Urine Ketones Urine Occult Blood Urine Nitrate Urine Bilirubin Urine Urobilinogen Ur Leukocyte Esterase Urine RBC (0-5/HPF) Urine WBC (0-5/HPF) Ur Squamous Epith Cells (0-5/HPF) Urine Bacteria (None) Ur Culture Indicated? Urine Opiates Screen Negative (Negative) Ur Oxycodone Screen Negative (Negative) Urine Methadone Screen Negative (Negative) Ur Barbiturates Screen Negative (Negative) U Tricyclic Antidepress Negative (Negative) Ur Phencyclidine Scrn Negative (Negative) Ur Amphetamines Screen Negative (Negative) U Methamphetamines Scrn Negative (Negative) Ur MDMA Scrn (Ecstasy) Negative (Negative) U Benzodiazepines Scrn Negative (Negative) Urine Cocaine Screen Negative (Negative) U Marijuana (THC) Screen Negative (Negative) 11/20/18 Range/Units 17:50 WBC (4.5-11.0) X10^3/uL RBC (4.0-5.2) X10^6/uL Hgb (12.0-16.0) g/dL Hct (36-46) % MCV (80-100) fL MCH (26-34) PG MCHC (30-36) % RDW (11.6-14.8) % Plt Count (150-400) X10^3/uL Neut % (Auto) (50-75) % Lymph % (Auto) (25-40) % [place] % (Auto) (3-14) % Eos % (Auto) (2-4) % Baso % (Auto) (0-2) % Neut # (Auto) (3368-5306) /uL Lymph # (Auto) (5284-0732) /uL [place] # (Auto) (0-900) /uL Eos # (Auto) (0-450) /uL Baso # (Auto) (0-100) /uL D-Dimer (<230) ng/mL Sodium (137-145) mmol/L Potassium (3.4-5.1) mmol/L Chloride (98-107) mmol/L Carbon Dioxide (22-32) mmol/L BUN (7-17) mg/dL Creatinine (0.52-1.04) mg/dL Estimated GFR (>60) mL/min BUN/Creatinine Ratio (6-22) Glucose (70-100) mg/dL Calcium (8.4-10.2) mg/dL Magnesium (1.6-2.3) mg/dL Total Bilirubin (0.2-1.3) mg/dL AST (14-36) IU/L ALT (9-52) IU/L Alkaline Phosphatase (38-126) U/L Total Creatine Kinase (30-135) U/L CK-MB (CK-2) CK-MB (CK-2) Rel Index Troponin I (0.01-0.034) ng/mL Total Protein (6.3-8.2) g/dL Albumin (3.5-5.0) g/dL Globulin (1.7-4.1) g/dL Albumin/Globulin Ratio (1.0-2.8) Prolactin (3.0-18.6) ng/mL Urine Color Cancelled Urine Appearance Cancelled Urine pH Cancelled Ur Specific Randolph Cancelled Urine Protein Cancelled Urine Glucose (UA) Cancelled Urine Ketones Cancelled Urine Occult Blood Cancelled Urine Nitrate Cancelled Urine Bilirubin Cancelled Urine Urobilinogen Cancelled Ur Leukocyte Esterase Cancelled Urine RBC 0-1/hpf (0-5/HPF) Urine WBC 10-30/hpf H (0-5/HPF) Ur Squamous Epith Cells 1-5 /hpf (0-5/HPF) Urine Bacteria Many (>30) H (None) Ur Culture Indicated? Specimen cultured Urine Opiates Screen (Negative) Ur Oxycodone Screen (Negative) Urine Methadone Screen (Negative) Ur Barbiturates Screen (Negative) U Tricyclic Antidepress (Negative) Ur Phencyclidine Scrn (Negative) Ur Amphetamines Screen (Negative) U Methamphetamines Scrn (Negative) Ur MDMA Scrn (Ecstasy) (Negative) U Benzodiazepines Scrn (Negative) Urine Cocaine Screen (Negative) U Marijuana (THC) Screen (Negative) Point of Care Testing Test Results Negative Urine Dip Bedside Urine Glucose Negative Bedside Urine Bilirubin - Negative Bedside Urine Ketone - Negative Urine Specific Randolph 1.020 Bedside Urine Occult Blood - Negative Bedside Urine pH 6.0 Bedside Urine Protein - Negative Bedside Urine Urobilinogen - Negative Bedside Urine Nitrite - Negative Bedside Urine Leukocytes +++ [address] scan - head: Radiologist's impression: [address] [address] [address] Scan Report Signed Patient: Ava Wellington RMR#: [id number] : 1985Acct:[id number] Age/Sex: te of Service: 11/20/18 Loc: ED Accession Number: [id number] Procedure: CT head/brain wo con Ordering Provider: Elizabeth Macias D.O. PROCEDURE: CT HEAD/BRAIN WO CON INDICATIONS: seizure vs syncope TECHNIQUE: Noncontrast 4.5 mm thick angled axial sections acquired from the foramen magnum to the vertex, with coronal and sagittal reformats. For radiation dose reduction, the following was used: automated exposure control, adjustment of mA and/or kV according to patient size. COMPARISON: None. FINDINGS: Image quality: Excellent. CSF spaces: Basal cisterns are patent. No extra-axial fluid collections. Ventricles are normal in size and shape. Brain: No midline shift. No intracranial masses or hemorrhage. Lin-white matter interface is normal. Skull and face: Calvarium and visualized facial bones are intact, without suspi cious lesions. Sinuses: Visualized sinuses and mastoids are clear. IMPRESSION: CT head without acute intracranial abnormalities or mass/mass effect. Dictated by: Nicholas Nunez M.D. on 11/20/2018 at 18:04 Approved by: Nicholas Nunez M.D. on 11/20/2018 at 18:05 Chest x-ray: Radiologist's impression: [address] [address] XRay Report Signed Patient: Ava Wellington RMR#: [id number] : 1985Acct:[id number] Age/Sex: FDate of Service: 11/20/18 Loc: ED Accession Number: [id number] Procedure: XR chest 1V Ordering Provider: Elizabeth Macias D.O. PROCEDURE: XR CHEST 1V INDICATIONS: seizure vs syncope vs other TECHNIQUE: One view of the chest was acquired. COMPARISON: 04/20/17. FINDINGS: Surgical changes and devices: Cardiac monitoring device projects over the left chest. Lungs and pleura: Lungs are clear. No pleural effusions or pneumothorax. Mediastinum: Mediastinal contours appear normal. Heart size is normal. Bones and chest wall: No suspicious bony lesions. Overlying soft tissues appear unremarkable. IMPRESSION: No acute cardiopulmonary abnormalities. Dictated by: Nicholas Nunez M.D. on 11/20/2018 at 18:55 Approved by: Nicholas Nunez M.D. on 11/20/2018 at 18:56 MDM Narrative Medical decision making narrative: 33-year-old female patient's head CT, chest x-ray and lab work did not show any acute changes. I spoke with Dr. Zhao who is on for her neurologist Dr. gottlieb. We discussed patient's episodes, patient does have an elevation in her heart rate when these episodes occur but otherwise they are very short, patient can hear everything that is being said during the episodes and she does not have any postictal phase after her 20-30 seconds they seem to be over and patient is back to her normal self. We d iscussed that patient has had EEG monitoring which was negative, the next step would be video monitoring they do not have that available at [facility]. He do have it available at some of the hospitals down [facility] and if patient wishes to have short-term follow-up as outpatient that would be an option if she prefers to do monitoring she would recommend transfer. Spoke with patient and , discussed neurology's concerns but that we cannot totally rule out any seizure like activity without that further evaluation. We discussed transfer to another facility with video EEG capabilities, patient prefers not to be transferred at this time. She is understandably upset that we do not have an exact answer and that I did discuss that she may be having psychogenic seizures which are not true epileptic seizures. We did also discuss that some people can have epileptic seizures and psychogenic seizures and there are multiple types of seizure patterns so she really should have further monitoring. Patient is aware of the plan. She is already getting set up for video monitoring and Dr. Br ettell asked that they call in the morning to help facilitate that faster. Patient and plan to do that she also has a secondary consultation with a different neurologist in [facility] in the future. We did discuss that she should continue to wear the ZIO patch and continue with further evaluation and workup to look for other causes as well. Discharge Plan Departure Patient Disposition: Home Clinical Impression: Acute alteration in mental status Discharge Date/Time: 11/20/18 20:32 Interventions: ED Discharge Assessment Last Done: 11/20/18 20:32 Instructions: DI for Seizure Disorder -- Adult, DI for Psychogenic Nonepileptic Seizures Activity Restrictions/Additional Instructions: Follow up with Dr. Gottlieb tomorrow. Call the office, let them know I spoke with Dr. Salazar and they would like to have it scheduled for video monitoring as well as follow-up. I also recommend consultation with a second neurologist as you have already scheduled. You can call to see if they can move up your appointment. Continue home medications as prescribed. Your lab work today it does show some changes to your urine, urine culture is pending if it is positive for infection he should receive a phone. Return to the emergency department for fevers greater than 100.4, new alterations in mental status, changes in your pattern of episodes, sudden severe headaches, new vision changes, persistent vomiting, new chest pain, shortness of breath, persistently elevated heart rate or other new or concerning symptoms. Prescriptions: No Action alpha lipoic acid 600 mg capsule 600 mg PO BID RF: 0 topiramate 100 mg tablet 100 mg PO DAILY RF: 0 vitamin B complex [B Complex-Vitamin B12] tablet 1 tab PO DAILY RF: 0 cholecalciferol (vitamin D3) 4,000 unit capsule 4,000 unit PO DAILY RF: 0 onabotulinumtoxinA [Botox] 100 unit recon soln 200 unit IM [id number] RF: 0 gabapentin [Neurontin] 300 MG capsule 600 mg PO TID Qty: 0 RF: 0 hydrocodone-acetaminophen [Butler] 5 MG/325 MG tablet 1 tab PO Q6H PRNQty: 0 RF: 0 sumatriptan succinate [Imitrex] 25 MG tablet 25 mg PO BID PRNQty: 0 RF: 0 dihydroergotamine 1 ML spray,non-aerosol 4 mg NS SEE INSTRUCTIONS Qty: 8 RF: 2 naratriptan 2.5 MG tablet 2.5 mg PO SEE INSTRUCTIONS PRNQty: 12 RF: 0 methylergonovine 0.2 MG/1 ML solution 0.2 mg OR TID Qty: 90 RF: 1 hydroxyzine pamoate 25 MG capsule 25 mg PO BIDP PRNQty: 60 RF: 3 Referrals: Crista Lane MD [Primary Care Provider] -
[2018-11-20 18:47] LABS: Urine Tetrahydrocannabinol Negative (Negative)
[2018-11-20 18:48] LABS: Urine Amphetamines Negative (Negative); Urine Barbiturates Negative (Negative); Urine Benzodiazepines Negative (Negative); Urine Cocaine Negative (Negative); Urine MDMA Negative (Negative); Urine Methadone Negative (Negative); Urine Methamphetamines Negative (Negative); Urine Morphine/Opi cutoff 2000 Negative (Negative); Urine Oxycodone Negative (Negative); Urine Phencyclidine Negative (Negative); Urine Tricyclic Antidepressant Negative (Negative)
[2018-11-20 18:55] LABS: RBC Urine 0-1/HPF (0-5/HPF); Squamous Epithelial Cell Urine 1-5 /HPF (0-5/HPF); WBC Urine 10-30/HPF (0-5/HPF)
[2018-11-20 18:56] LABS: Bacteria Urine Many (>30); Culture Indicated Urine Specimen Cultured
--- NOTE | 2018-11-20 19:33 | PC.NURSE ---
Pt moved into room 5. States had 2 more episodes. nurse monitoring had been turned off during 2 more episodes.
== END 2018-11-20 20:32 | disposition home or self-care (01) ==
PROVIDERS: Emergency Provider Emergency Medicine; PCP Family Medicine
DX: R41.82 Altered mental status, unspecified (principal); R20.0 Anesthesia of skin; R47.89 Other speech disturbances; R55 Syncope and collapse
CPT/HCPCS: 36591; 70450; 71045; 80053; 80305; 81003; 81015; 81025; 82550; 83735; 84146; 84484; 85025; 85379; 87086; 93005; 96374; 99283; 99284; J2060

== ENCOUNTER 2018-11-27 19:50 | Emergency (ER) | payer OTHER, SELFPAY ==
[2018-11-27 20:01] VITALS: BP 120/68; PULSE 115; RESP 18; TEMP 37.6; O2SAT 99
--- NOTE | 2018-11-27 20:05 | ED_ITS ---
HPI - Seizure General Chief Complaint: Neuro Symptoms/Deficit Stated Complaint: muscle cramps or spasms Time Seen by Provider: 11/27/18 20:02 Source: patient Mode of arrival: ambulatory Limitations: no limitations History of Present Illness HPI Narrative: Patient is a 33-year-old female with a complicated neurologic history. Was seen here in the emergency department several days ago and had a CT scan and labs done which were normal. Patient followed up with her primary doctor after that and had her gabapentin increased from 600 mg a day to 600 mg 3 times a day. Patient has seen a neurologist in the past. Has had an EEG in the past which she states was unremarkable. Her and her neurologist have talked ab out her having a video EEG but this has not been scheduled yet. She does have a quality assurance monitor chassis in place. 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 She states that for the past 3 days she has had worsening episodes where she has ?muscle spasms? sometimes that can be localized to just her face and neck other times they are full body spasms. She states she has w oken up from sleep at night with them. Has not tried anything for them. Related Data Home Medications Medication Instructions Recorded Confirmed gabapentin [Neurontin] 600 mg PO TID #0 06/07/17 02/02/18 hydrocodone-acetaminophen [[place]] 1 tab PO Q6H PRN #0 08/17/17 02/02/18 sumatriptan succinate [Imitrex] 25 mg PO BID PRN #0 08/17/17 02/02/18 alpha lipoic acid 600 mg capsule 600 mg PO BID cap 02/02/18 02/02/18 cholecalciferol (vitamin D3) 4,000 4,000 unit PO DAILY 02/02/18 02/02/18 unit capsule onabotulinumtoxinA 100 unit 200 unit IM [id number] each 02/02/18 02/02/18 solution for injection topiramate 100 mg tablet 100 mg PO DAILY tab 02/02/18 02/02/18 vitamin B complex tablet 1 tab PO DAILY 02/02/18 02/02/18 Previous Rx's Medication Instructions Recorded dihydroergotamine 4 mg NS SEE INSTRUCTIONS #8 spray 08/25/17 naratriptan 2.5 mg PO SEE INSTRUCTIONS PRN #12 09/20/17 tab methylergonovine 0.2 mg OR TID #90 tab 09/29/17 hydroxyzine pamoate 25 mg PO BIDP PRN #60 cap 10/08/17 lorazepam [Ativan] 1 mg PO BID-TID PRN #14 tab 11/27/18 Allergies Allergy/AdvReac Type Severity Reaction Status Date / Time No Known Drug Allergies Allergy Unverified 02/02/18 09:55 Review of Systems Constitutional Denies fever(s) and Denies headache(s) ENT Ears, Nose, Mouth, and Throat: Denies dizziness and Denies headache(s) Cardiovascular Denies chest pain and Denies dyspnea Respiratory Denies dyspnea Gastrointestinal Gastrointestinal: Denies abdominal pain Genitourinary Denies dysuria Musculoskeletal Reports myalgias, Denies arthralgias and Reports muscle cramps Integumentary/Breasts Denies rash Neurologic Denies dizziness and Denies headache(s) Hematologic/Lymphatic Denies easy bleeding and Denies easy bruising Allergic/Immunologic Denies urticaria PFSH Medical History Migraines (Chronic) Small fiber neuropathy (Chronic) Social History Smoking Status: Former smoker Social History Smoking Status: Former smoker Exam Initial Vital Signs Initial Vital Signs: Vital Signs Temperature 99.6 F 11/27/18 20:01 Pulse Rate 115 H 11/27/18 20:01 Respiratory Rate 18 11/27/18 20:01 Blood Pressure 120/68 11/27/18 20:01 Pulse Oximetry 99 11/27/18 20:01 Const General: cooperative, healthy appearing, comfortable and well developed [facility] Head: normal to inspection Resp Effort & Inspection: normal respiratory effort Auscultation: clear to auscultation bilaterally Cardio Rate: regular rate Rhythm: regular rhythm GI Inspection: non-distended Palpation: soft and No tender Skin Lesions: no lesions Rashes: no rashes Neuro General: alert, awake and oriented x3 Cognition: normal cognition Speech: speech normal Gait: normal gait Other: Patient has episodes where she turns her head to the right or to the left with the parent muscle spasms in her neck. She also also had this in conjunction with pointing of her left toes with muscle spasms in her left calf muscle. I did not witness any upper extremity symptoms. Extrem General: normal to inspection and capillary refill normal Psych Appearance: grossly normal, well kempt and not disheveled Speech and Movement: not agitated Mood: congruent mood and not anxious Affect: normal affect Attitude: cooperative Thought Process: normal Course Orders Ordered: ED Orders 11/27/18 20:25 Basic Metabolic Panel Stat Complete Blood Count AUTO DIFF Stat Magnesium Stat Phosphorous Stat Discontinued Medications Lorazepam (Ativan) 1 mg PO NOW ONE Stop: 11/27/18 20:22 Last Admin: 11/27/18 20:45 Dose: 1 mg Vital Signs - 8 hr 11/27/18 20:01 11/27/18 21:24 Temperature 99.6 F Pulse Rate 115 H 86 Respiratory Rate 18 15 Blood Pressure 120/68 Blood Pressure [Left Arm] 106/66 Pulse Oximetry 99 96 MDM - Seizure Lab Data Attestation: I reviewed the patient's lab results. Result diagrams: 11/27/18 20:25 11/27/18 20:25 Lab Results 11/27/18 11/27/18 Range/Units 20:25 20:25 WBC 7.8 (4.5-11.0) X10^3/uL RBC 4.86 (4.0-5.2) X10^6/uL Hgb 14.9 (12.0-16.0) g/dL Hct 42.1 (36-46) % MCV 86.6 (80-100) fL MCH 30.6 (26-34) PG MCHC 35.3 (30-36) % RDW 12.3 (11.6-14.8) % Plt Count 266 (150-400) X10^3/uL Neut % (Auto) 66.3 (50-75) % Lymph % (Auto) 23.2 L (25-40) % Holmes % (Auto) 6.6 (3-14) % Eos % (Auto) 2.7 (2-4) % Baso % (Auto) 1.2 (0-2) % Neut # (Auto) 5200 (6869-7354) /uL Lymph # (Auto) 1800 (4820-3384) /uL Holmes # (Auto) 500 (0-900) /uL Eos # (Auto) 200 (0-450) /uL Baso # (Auto) 100 (0-100) /uL Sodium 139 (137-145) mmol/L Potassium 3.5 (3.4-5.1) mmol/L Chloride 107 (98-107) mmol/L Carbon Dioxide 21 L (22-32) mmol/L BUN 12 (7-17) mg/dL Creatinine 0.70 (0.52-1.04) mg/dL Estimated GFR > 60.0 (>60) mL/min BUN/Creatinine Ratio 17.1 (6-22) Glucose 94 (70-100) mg/dL Calcium 9.2 (8.4-10.2) mg/dL Phosphorus 3.3 (2.5-4.5) mg/dL Magnesium 1.9 (1.6-2.3) mg/dL MDM Narrative Medical decision making narrative: Patient's labs were unremarkable. She did get some relief after the oral Ativan here in the emergency department. She has an MRI or any scheduled for Wednesday of this week. Had a long discussion with her regarding her symptoms. Unsure if this is psychogenic or neurologic or both however she did improve with the Ativan. Was sent home with a prescription for this. Informed her that she needed to contact her neurologist for follow-up. Considered other etiologies such as tardive dyskinesia however the medications that she is on her not classic for this type of reaction. Low suspicion for CVA. Could potentially be focal seizures. She has had a recent CT scan of her head so will hold on this for now. Patient was given return precautions. She expressed understanding and agreement plan. Discharge Plan Departure Patient Disposition: Home Clinical Impression: Muscle spasm Instructions: DI for Muscle Spasm Activity Restrictions/Additional Instructions: Keep your MRI appointment that you have scheduled for Wednesday. Contact your neurologist and your primary doctor for a follow-up. Return to the emergency department for any new or worsening symptoms Prescriptions: New lorazepam [Ativan] 1 mg tablet 1 mg PO BID-TID PRN (Reason: muscle spasm) Qty: 14 RF: 0 No Action alpha lipoic acid 600 mg capsule 600 mg PO BID RF: 0 topiramate 100 mg tablet 100 mg PO DAILY RF: 0 vitamin B complex [B Complex-Vitamin B12] tablet 1 tab PO DAILY RF: 0 cholecalciferol (vitamin D3) 4,000 unit capsule 4,000 unit PO DAILY RF: 0 onabotulinumtoxinA [Botox] 100 unit recon soln 200 unit IM [id number] RF: 0 gabapentin [Neurontin] 300 MG capsule 600 mg PO TID Qty: 0 RF: 0 hydrocodone-acetaminophen [[place]] 5 MG/325 MG tablet 1 tab PO Q6H PRNQty: 0 RF: 0 sumatriptan succinate [Imitrex] 25 MG tablet 25 mg PO BID PRNQty: 0 RF: 0 dihydroergotamine 1 ML spray,non-aerosol 4 mg NS SEE INSTRUCTIONS Qty: 8 RF: 2 naratriptan 2.5 MG tablet 2.5 mg PO SEE INSTRUCTIONS PRNQty: 12 RF: 0 methylergonovine 0.2 MG/1 ML solution 0.2 mg OR TID Qty: 90 RF: 1 hydroxyzine pamoate 25 MG capsule 25 mg PO BIDP PRNQty: 60 RF: 3 Referrals: Crista Lane MD [Primary Care Provider] -
[2018-11-27 20:40] LABS: Add Manual Diff / Slide Review NO; Basophils Absolute Auto 100 /uL (0-100); Basophils Percent Auto 1.2 % (0-2); Eosinophils Absolute Auto 200 /uL (0-450); Eosinophils Percent Auto 2.7 % (2-4); Hematocrit 42.1 % (36-46); Hemoglobin 14.9 g/dL (12.0-16.0); Lymphocytes Absolute Auto 1800 /uL (1100-4500); Lymphocytes Percent Auto 23.2 % (25-40); Mean Corpuscular HGB Conc 35.3 % (30-36); Mean Corpuscular Hemoglobin 30.6 PG (26-34); Mean Corpuscular Volume 86.6 fL (80-100); Monocytes Absolute Auto 500 /uL (0-900); Monocytes Percent Auto 6.6 % (3-14); Neutrophils Absolute Auto 5200 /uL (1500-7000); Neutrophils Percent Auto 66.3 % (50-75); Platelet Count 266 X10^3/uL (150-400); Red Blood Cell Count 4.86 X10^6/uL (4.0-5.2); Red Cell Distribution Width 12.3 % (11.6-14.8); White Blood Cell Count 7.8 X10^3/uL (4.5-11.0)
[2018-11-27] MEDS: LORazepam 1 MG TABLET PO (20:45)
[2018-11-27 20:49] LABS: BUN Creatinine Ratio 17.1 (6-22); Blood Urea Nitrogen 12 mg/dL (7-17); Calcium 9.2 mg/dL (8.4-10.2); Carbon Dioxide 21 mmol/L (22-32); Chloride 107 mmol/L (98-107); Estimated Glomerular Filt Rate > 60.0 mL/min (>60); Glucose 94 mg/dL (70-100); HEMOLYSIS < 15 (0-50); Magnesium 1.9 mg/dL (1.6-2.3); Phosphorous 3.3 mg/dL (2.5-4.5); Potassium 3.5 mmol/L (3.4-5.1); Sodium 139 mmol/L (137-145)
[2018-11-27 21:24] VITALS: BP 106/66; PULSE 86; RESP 15; O2SAT 96
== END 2018-11-27 21:58 | disposition home or self-care (01) ==
PROVIDERS: Emergency Provider Emergency Medicine; PCP Family Medicine
DX: M62.838 Other muscle spasm (principal)
CPT/HCPCS: 36591; 80048; 83735; 84100; 85025; 99282; 99283; 99291

== ENCOUNTER 2019-01-10 14:40 | Outpatient (CLI) | payer OTHER, SELFPAY ==
[2019-01-10] VITALS (7 sets, daily range): BP systolic 96–116; BP diastolic 39–80; PULSE 74–90; RESP 16–18; TEMP 36.3; O2SAT 98–100
--- NOTE | 2019-01-10 14:42 | DI.RAD.S_ITS ---
PROCEDURE: PAIN L/S TRANSFORAMINAL INJECT INDICATIONS: INTERVERTEBRAL DISC DISPLACEMENT FINDINGS: Fluoroscopic spot filming was performed to verify placement of spinal needles at the level(s) as labeled on the films. Appropriate location(s) of the needle tip(s) was confirmed by injection of iodinated contrast. IMPRESSION: Fluoroscopy for pain management. Dictated by: Alexandre Larkin M.D. on 01/10/2019 at 16:18 Approved by: Alexandre Larkin M.D. on 01/10/2019 at 16:18
[2019-01-10] MEDS: MIDAZOLAM 5 MG/5 ML VIAL IV (15:20)
[2019-01-10] MEDS: fentaNYL 100 MCG/2 ML INJ 50 MCG IV (15:21)
[2019-01-10] MEDS: BUPIVACAINE 0.25% (PF) VIAL 2 ML INJ (15:27)
[2019-01-10] MEDS: IOPAMIDOL 15 ML VIAL 3 ML INJ (15:27)
[2019-01-10] MEDS: DEXAMETHASONE 10 MG/ML VIAL 20 MG INJ (15:28)
[2019-01-10] MEDS: BETAMETHASONE 30 MG/5 ML MDV 12 MG INJ (15:28)
--- NOTE | 2019-01-10 15:30 | PC.NURSE ---
ASSISTING PT OFF TABLE AND TRANSPORTING TO POST PROC AREA IN STABLE CONDITION
--- NOTE | 2019-01-10 15:35 | P.PCN_ITS ---
Procedures Date/Time Date of procedure: 01/10/19 Time of procedure: 15:34 General Procedure description: PREOP DIAGNOSIS 1. FORMAINAL STENOSIS WITH LE SYMPTOMS POST OP DIAGNOSIS 1. FORMAINAL STENOSIS WITH LE SYMPTOMS PROCEDURES 1. FLUOROSCOPICALLY GUIDED CONTRAST CONTROLLED TRANSFORAMINAL EPIDURAL STEROID INJECTION - LEFT L4/5 PHYSICIAN: Wenceslao Lester DO INDICATIONS: Ava is referred by for treatment of Foraminal Stenosis with Left LE Symptoms FINDINGS Foraminal Nerve Root Compression secondary to disc disease and facet hypertrophy DESCRIPTION OF PROCEDURE: Following review of allergy and review of potential side effects and complications, including, but not necessarily limited to, infection, allergic reaction, local tissue breakdown, stroke, temporary or permanent nerve injury, paralysis, and possible , the patient indicated that the patient understood and agreed to proceed. An informed consent document was signed by the patient, witnessed by a nurse, and placed in the patient's chart. Additionally, other treatment options including medications, modalities, and physical therapy were reviewed with the patient. After review of previous anaesthesic history and IV conscious sedation the patie nt was deemed safe to proceed with todays procedure with IV conscious sedation as ASA class II designation. Safety time-out was performed to confirm patient ID, procedure to be performed and site of procedure. IV sedation was accomplished with a combination of 3mg of Versed and 50mcg of Fentanyl administered by the RN after DO order, titrated to patient comfort during the course of the procedure while the patient remained responsive to all verbal commands In the prone position following sterile prep and drape of the lumbar region, the left L4/5 posterior neuroforamen was identified fluoroscopically. The skin was anesthetized via a 25-gauge 1.5-inch needle with 1% lidocaine solution. At this point, a 25-gauge 3.5-inch spinal needle was atraumatically introduced and advanced under fluoroscopic guidance through the posterior left L4/5 neuroforamen to approximately the anterior aspect of the canal. Depth was confirmed on lateral view. Following negative aspiration, injection of appr oximately 1.5 cc of Isovue 200 under live fluoroscopy in the AP view confirmed excellent flow along the nerve root, into the epidural space without vascular or intrathecal uptake observed Radiological data, including multiple fluoroscopic views of the lumbosacral spine, reveal a spinal needle at the left L4/5 posterior neuroforamen. Subsequent views show flow of contrast material flowing superiorly and inferiorly along the nerve root confirming epidural flow. Subsequently, a test dose of 1.5 cc of 1% lidocaine solution was administered and patient was observed for two minutes for signs or symptoms of complications, including abdominal pain, shortness of breath, bilateral upper or lower extremity weakness, nausea and vomiting, prior to steroid injection. At this point, a total of 3cc or 20mg of dexamethasone and 6mg of betamethasone was injected without incident. The procedure tolerated the procedure well without signs or symptoms of complications prior to transfer to the recovery area continued monitoring without incident. The patient was then transferred to the recovery area where they were observed for an appropriate time after the injection. The patient reported a VAS score of 7 prior to the procedure and a post- procedure VAS of 0. Total Fluoroscopy Time: 20.9 seconds Total Conscious Sedation Time: 24min POST OP INSTRUCTIONS The patient was provided a Pain Log to continue to record their response to the target-specific procedure prior to follow-up visit with their referring physician. Additionally, specific post-injection care instructions and a contact number to our office were provided if concerns arise regarding possible complications associated with the procedure are suspected. Wenceslao Lester, Complications: none
--- NOTE | 2019-01-10 15:38 | PC.NURSE ---
Pt returned from procedure awake and alert. Able to transfer to the chair from W/C with standby assist. Resumed monitoring with Tanya MUSE.
== END 2019-01-10 16:00 ==
LOC: RAD 14:41
PROVIDERS: PCP Family Medicine; Visit Provider Physical Medicine & Rehabilitation
DX: M48.061 Spinal stenosis, lumbar region without neurogenic claudication (principal); M51.16 Intervertebral disc disorders with radiculopathy, lumbar region
CPT/HCPCS: 64483; 99152; J0702; J1100; J2250; J3010

== ENCOUNTER → 2019-05-04 12:09 | Outpatient (CLI) | payer OTHER, SELFPAY ==
--- NOTE | 2019-05-04 | DI.MG.S_ITS ---
BILATERAL DIGITAL SCREENING MAMMOGRAM 3D/2D WITH CAD: 05/04/2019 CLINICAL: Baseline exam. Routine screening. Family history of breast cancer. No prior exams were available for comparison. The tissue of both breasts is extremely dense, which lowers the sensitivity of mammography. Current study was also evaluated with a Computer Aided Detection (CAD) system. There is an oval equal density asymmetry with an indistinct and circumscribed margin in the right breast anterior depth medial region seen on the craniocaudal view only. There are grouped fine punctate calcifications in the left breast at 11 o'clock posterior depth. There also is an oval equal density asymmetry with an indistinct and circumscribed margin in the left breast middle depth inferior region seen on the mediolateral oblique view only. No other significant masses or calcifications are seen in either breast. IMPRESSION: INCOMPLETE: NEEDS ADDITIONAL IMAGING EVALUATION The oval equal density asymmetry in the right breast anterior depth medial region seen on the craniocaudal view only is indeterminate. Mediolateral and spot compression views as well as additional views with possible ultrasound are recommended. The grouped fine punctate calcifications in the left breast at 11 o'clock posterior depth are indeterminate. Mediolateral, spot magnification, and additional views are recommended. The oval equal density asymmetry in the left breast middle depth inferior region seen on the mediolateral oblique view only is indeterminate. Mediolateral and spot compression views as well as additional views with possible ultrasound are recommended. Please note that given patient's family history of breast cancer and extremely dense breasts, patient may be a candidate for screening breast MRI. This exam was interpreted at Station ID: [id number]. NOTE: For mammograms, a report in lay terms will be sent to the patient. Approximately 15% of breast malignancies will not be visualized mammographically. In the management of a palpable breast mass, a negative mammogram must not discourage biopsy of a clinically suspicious lesion. Electronically Signed By: Eligio Hoyt M.D. ddjakub/:05/04/2019 15:59:28 letter sent: Additional Imaging Needed ACR BI-RADS Category 0: Incomplete 3340F
== END ==
PROVIDERS: PCP Family Medicine; Visit Provider Family Medicine
DX: Z12.31 Encounter for screening mammogram for malignant neoplasm of breast (principal); Z80.3 Family history of malignant neoplasm of breast
CPT/HCPCS: 77063; 77067

== ENCOUNTER → 2019-05-30 13:13 | Outpatient (CLI) | payer OTHER, SELFPAY ==
--- NOTE | 2019-05-30 | DI.US.S_ITS ---
LIMITED ULTRASOUND OF RIGHT BREAST: 05/30/2019 CLINICAL: Patient returns today to evaluate an asymmetry in the right breast. Comparison is made to exams dated: 05/30/2019 mammogram and 05/04/2019 mammogram - [facility]. Color flow and real-time ultrasound of the right breast inner aspect were performed. Lin scale images of the real-time examination were reviewed. No underlying breast mass or abnormality is identified. There is no ultrasound correlate for the previously noted oval equal density asymmetry with an indistinct margin in the right breast anterior depth medial region seen on the craniocaudal view only on comparison screening mammograms of 05/04/19, which also resolved and had the appearance of benign fibroglandular tissues on additional diagnostic mammogram views performed earlier today 05/30/19. IMPRESSION: NEGATIVE There is no sonographic evidence of malignancy in the imaged areas of the medial right breast. Return to annual screening mammography schedule for the right breast is recommended. The patient is advised to monitor her breasts and to return sooner for re-evaluation should she feel anything grow or change. Please see seperately dictated left breast ultrasound report for follow-up recommendations for the left breast. This exam was interpreted at Station ID: [id number]. Electronically Signed By: Marko Caldwell M.D. ecl/:05/30/2019 15:57:52 Ultrasound BI-RADS: 1 Negative
--- NOTE | 2019-05-30 | DI.US.S_ITS ---
LIMITED ULTRASOUND OF LEFT BREAST: 05/30/2019 CLINICAL: Patient returns today to evaluate an asymmetry in the left breast. Comparison is made to exams dated: 05/30/2019 mammogram and 05/04/2019 mammogram - [facility]. Color flow ultrasound of the left breast 3-9 o'clock region was performed. Lin scale images of the real-time examination were reviewed. There is a 0.6 x 0.5 x 0.4 cm oval circumscribed anechoic cyst with increased through transmission/posterior acoustic enhancement, and no vascularity on Doppler ultrasound located in the left breast at 4 o'clock 2 cm from the nipple. There is no convincing ultrasound correlate for the previously noted oval equal density asymmetry with an indistinct margin in the left breast middle depth inferior region seen on the mediolateral oblique view only on comparison screening mammograms of 05/04/19, which also resolved on additional diagnostic mammogram views performed earlier today 05/30/19. IMPRESSION: PROBABLY BENIGN 1) 0.6 cm benign simple cyst in the left breast at 4 o'clock 2 cm from the nipple. 2) A follow-up diagnostic mammogram in 6 months (with possible ultrasound) is recommended to demonstrate stability of the 0.3 x 0.3 x 0.3 cm extent of grouped odalys-like and coarse calcifications in the superior medial left breast at posterior depth seen on comparison screening and diagnostic mammography. The patient is advised to monitor her breasts and to return sooner for re-evaluation should she feel anything grow or change. This exam was interpreted at Station ID: [id number]. Electronically Signed By: Marko Caldwell M.D. ecl/:05/30/2019 15:41:35 letter sent: Followup Recommended Ultrasound BI-RADS: 3 Probably benign
--- NOTE | 2019-05-30 | DI.MG.S_ITS ---
BILATERAL DIGITAL DIAGNOSTIC MAMMOGRAM 3D/2D WITH ADDITIONAL VIEWS: 05/30/2019 CLINICAL: Additional evaluation requested from prior study. Comparison is made to exam dated: 05/04/2019 [facility]. The tissue of both breasts is extremely dense, which lowers the sensitivity of mammography. There is a 0.3 x 0.3 x 0.3 cm extent of grouped odalys-like and coarse calcifications in the superior medial left breast at posterior depth (initially described as fine punctate calcifications in the left breast at 11 o'clock posterior depth on comparison screening mammogram of 05/04/19 but better evaluated on magnification diagnostic views performed today 05/30/19). Of note, these calcifications are not branching on tomosynthesis views, although they occasionally are superimposed on top of one another. Previously identified oval equal density asymmetry with an indistinct margin in the left breast middle depth inferior region seen on the mediolateral oblique view only on comparison screening mammograms of 05/04/19 resolves and has the appearance of dense fibroglandular tissues on additional views. Previously identified oval equal density asymmetry with an indistinct margin in the right breast anterior depth medial region seen on the craniocaudal view only on comparison screening mammograms of 05/04/19 resolves and has the appearance of dense fibroglandular tissues on additional views. No other significant masses or abnormalities are seen in either breast. IMPRESSION: INCOMPLETE: NEEDS ADDITIONAL IMAGING EVALUATION 1) 0.3 x 0.3 x 0.3 cm extent of grouped odalys-like and coarse calcifications in the superior medial left breast at posterior depth. These may represent secretory or vascular calcifications. A follow-up diagnostic mammogram in 6 months is recommended to demonstrate stability. 2) Previously identified oval equal density asymmetry with an indistinct margin in the left breast middle depth inferior region seen on the mediolateral oblique view only on comparison screening mammograms of 05/04/19 resolves and has the appearance of dense fibroglandular tissues on additional views. A targeted ultrasound is recommended for further evaluation, and will be performed immediately following this exam. 3) Previously identified oval equal density asymmetry with an indistinct margin in the right breast anterior depth medial region seen on the craniocaudal view only on comparison screening mammograms of 05/04/19 resolves and has the appearance of dense fibroglandular tissues on additional views. A targeted ultrasound is recommended for further evaluation, and will be performed immediately following this exam. This exam was interpreted at Station ID: [id number]. NOTE: For mammograms, a report in lay terms will be sent to the patient. Approximately 15% of breast malignancies will not be visualized mammographically. In the management of a palpable breast mass, a negative mammogram must not discourage biopsy of a clinically suspicious lesion. Electronically Signed By: Marko Caldwell M.D. ecl/:05/30/2019 15:41:55 ACR BI-RADS Category 0: Incomplete 3340F
== END ==
PROVIDERS: PCP Family Medicine; Visit Provider Family Medicine
DX: R92.8 Other abnormal and inconclusive findings on diagnostic imaging of breast (principal); R92.1 Mammographic calcification found on diagnostic imaging of breast; N60.02 Solitary cyst of left breast; N64.89 Other specified disorders of breast
CPT/HCPCS: 76642; 77066; G0279

== ENCOUNTER 2019-06-13 15:29 | Outpatient (CLI) | payer OTHER, SELFPAY ==
[2019-06-13] VITALS (7 sets, daily range): BP systolic 92–129; BP diastolic 58–76; PULSE 79–90; RESP 16–18; TEMP 36.3; O2SAT 98–100
--- NOTE | 2019-06-13 15:30 | DI.RAD.S_ITS ---
PROCEDURE: PAIN L/S TRANSFORAMINAL INJECT INDICATIONS: [id number] Left L2-5 TF ANAHY FINDINGS: Fluoroscopic spot filming was performed to verify placement of spinal needles at the L4-L5 level(s), as labeled on the films. Appropriate location(s) of the needle tip(s) was confirmed by injection of iodinated contrast. Dictated by: Sean Hair M.D. on 06/13/2019 at 16:40 Approved by: Sean Hair M.D. on 06/13/2019 at 16:40
[2019-06-13] MEDS: MIDAZOLAM 5 MG/5 ML VIAL IV (16:01)
[2019-06-13] MEDS: fentaNYL 100 MCG/2 ML INJ 50 MCG IV (16:02)
[2019-06-13] MEDS: IOPAMIDOL 15 ML VIAL 3 ML INJ (16:06)
[2019-06-13] MEDS: BUPIVACAINE 0.25% (PF) VIAL 2 ML INJ (16:06)
[2019-06-13] MEDS: DEXAMETHASONE 10 MG/ML VIAL 20 MG INJ (16:06)
[2019-06-13] MEDS: BETAMETHASONE 30 MG/5 ML MDV 6 MG INJ (16:06)
--- NOTE | 2019-06-13 16:09 | PC.NURSE ---
ASSISTING PT OFF TABLE AND TRANSPORTING TO POST PROC AREA IN STABLE CONDITION.
--- NOTE | 2019-06-13 16:16 | P.PCN_ITS ---
Procedures Date/Time Date of procedure: 06/13/19 Time of procedure: 16:16 General Procedure description: PREOP DIAGNOSIS 1. FORMAINAL STENOSIS WITH LE SYMPTOMS POST OP DIAGNOSIS 1. FORMAINAL STENOSIS WITH LE SYMPTOMS PROCEDURES 1. FLUOROSCOPICALLY GUIDED CONTRAST CONTROLLED TRANSFORAMINAL EPIDURAL STEROID INJECTION - LEFT L4/5 PHYSICIAN: Wenceslao Lester DO INDICATIONS: Ava is referred by for treatment of Foraminal Stenosis with Left LE Symptoms FINDINGS Foraminal Nerve Root Compression secondary to disc disease and facet hypertrophy DESCRIPTION OF PROCEDURE: Following review of allergy and review of potential side effects and complications, including, but not necessarily limited to, infection, allergic reaction, local tissue breakdown, stroke, temporary or permanent nerve injury, paralysis, and possible , the patient indicated that the patient understood and agreed to proceed. An informed consent document was signed by the patient, witnessed by a nurse, and placed in the patient's chart. Additionally, other treatment options including medications, modalities, and physical therapy were reviewed with the patient. After review of previous anaesthesic history and IV conscious sedation the norma ent was deemed safe to proceed with todays procedure with IV conscious sedation as ASA class II designation. Safety time-out was performed to confirm patient ID, procedure to be performed and site of procedure. IV sedation was accomplished with a combination of 3mg of Versed and 50mcg of Fentanyl administered by the RN after DO order, titrated to patient comfort during the course of the procedure while the patient remained responsive to all verbal commands In the prone position following sterile prep and drape of the lumbar region, the left L4/5 posterior neuroforamen was identified fluoroscopically. The skin was anesthetized via a 25-gauge 1.5-inch needle with 1% lidocaine solution. At this point, a 25-gauge 3.5-inch spinal needle was atraumatically introduced and advanced under fluoroscopic guidance through the posterior left L4/5 neuroforamen to approximately the anterior aspect of the canal. Depth was confirmed on lateral view. Following negative aspiration, injection of faustina roximately 1.5 cc of Isovue 200 under live fluoroscopy in the AP view confirmed excellent flow along the nerve root, into the epidural space without vascular or intrathecal uptake observed Radiological data, including multiple fluoroscopic views of the lumbosacral spine, reveal a spinal needle at the left L4/5 posterior neuroforamen. Subsequent views show flow of contrast material flowing superiorly and inferiorly along the nerve root confirming epidural flow. Subsequently, a test dose of 1.5 cc of 1% lidocaine solution was administered and patient was observed for two minutes for signs or symptoms of complications, including abdominal pain, shortness of breath, bilateral upper or lower extremity weakness, nausea and vomiting, prior to steroid injection. At this point, a total of 3cc or 20mg of dexamethasone and 6mg of betamethasone was injected without incident. The procedure tolerated the procedure well without signs or symptoms of complications prior to transfer to the recovery area continued monitoring without incident. The patient was then transferred to the recovery area where they were observed for an appropriate time after the injection. The patient reported a VAS score of 7 prior to the procedure and a post- procedure VAS of 0. Total Fluoroscopy Time: 20.9 seconds Total Conscious Sedation Time: 24min POST OP INSTRUCTIONS The patient was provided a Pain Log to continue to record their response to the target-specific procedure prior to follow-up visit with their referring physician. Additionally, specific post-injection care instructions and a contact number to our office were provided if concerns arise regarding possible complications associated with the procedure are suspected. Wenceslao Lester, Complications: none
--- NOTE | 2019-06-13 16:20 | PC.NURSE ---
Post procedure note: Patient arrived for post procedure monitoring. Handoff report received from Nazia Bates RN. Patient drowsy but awake and talking. VSS, O2 Sat WNL. No complaints of pain 0/10 pain level. Denies any unusual numbness or tingling to lower extremities. tolerating po without nausea. Discharge instructions reviewed with good understanding.
== END 2019-06-13 16:37 | disposition home or self-care (01) ==
LOC: RAD 15:29
PROVIDERS: Family Provider Family Medicine; PCP Family Medicine; Visit Provider Physical Medicine & Rehabilitation
DX: M48.061 Spinal stenosis, lumbar region without neurogenic claudication (principal); M51.16 Intervertebral disc disorders with radiculopathy, lumbar region
CPT/HCPCS: 64483; 99152; J0702; J1100; J2250; J3010